=== PATIENT | female | born 1990 | race Hispanic/Latino ===

== ENCOUNTER 2017-09-13 23:43 | Emergency (ER) | payer SELFPAY ==
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
[2017-09-13] MEDS ORDERED: Ibuprofen 600 MG Tab PO ONE (23:53)
[2017-09-13] MEDS ORDERED: Ondansetron 4 MG Tab.DIS PO ONE (23:53)
[2017-09-13] MEDS: Acetaminophen/oxyCODONE 325-5 MG Tab PO ONE (23:58)
[2017-09-14] MEDS: Acetaminophen/oxyCODONE 325-5 MG Tab PO ONE (00:48)
--- NOTE | 2017-09-15 11:40 | CT ---
CT facial bones Technique: Multiple axial sections through the facial bones were obtained. Reconstructed sagittal and coronal images were reviewed. Comparison: No prior CT for facial bone study. Findings: Soft tissue hematoma and swelling are seen within the left frontal scalp. Right and left globes are symmetric. No facial bone fracture is appreciated. Paranasal sinuses are clear. Impression: 1. Soft tissue hematoma and swelling within the left frontal scalp. 2. No additional abnormality is appreciated on CT study of the facial bones. Diagnostic code #3 I agree with preliminary report issued by [facility] ([facility] report finalized on 09/14/17, 1:39 AM Central Time)
--- NOTE | 2017-09-15 11:40 | CT ---
Head CT Technique: Multiple axial sections through the brain were obtained. Intravenous contrast was not utilized. Comparison: No prior intracranial imaging. Findings: Soft tissue hematoma is noted within the left posterior frontal scalp. Ventricles along with basal cisterns and sulci over the convexities are within normal limits for the patient's age. Slight motion artifact seen on several of the cuts. No definite areas of intracranial hemorrhage. No midline shift or mass effect is seen. Bone window settings were reviewed which show the visualized sinuses to appear clear. No acute calvarial abnormality is appreciated. Impression: 1. Soft tissue hematoma within the posterior left frontal scalp. 2. Mild motion artifact. 3. No definite acute intracranial abnormality is identified. Diagnostic code #3 I agree with preliminary report issued by [facility] ([facility] report finalized on 09/14/17, 1:40 AM Central Time)
== END 2017-09-14 00:45 | disposition home or self-care (01) ==
LOC: JD.ED 23:43 → EDBD 23:43 → JD.ED 09-14 00:45
DX: S01.511A Laceration without foreign body of lip, initial encounter (principal); Y04.2XXA Assault by strike against or bumped into by another person, initial encounter
CPT/HCPCS: 70450; 70486; 99285; A9270

== ENCOUNTER 2020-06-06 07:16 | Inpatient (IN) | payer MEDICAID ==
[2020-06-06] MEDS ORDERED: Nalbuphine 10 MG/ML Syringe IVPUSH PRN (07:20)
[2020-06-06] MEDS ORDERED: Sodium Chloride 0.9% 10 ML Syringe FLUSH PRN (07:20)
[2020-06-06] MEDS ORDERED: Ondansetron 4 MG/2 ML SDV IVPUSH PRN (07:20)
--- NOTE | 2020-06-06 07:23 | PCM.LDHP ---
L&D History of Present Illness - General Date of Service: 06/06/20 Admit Problem/Dx: Patient Status Order with Admit Dx/Problem 06/06/20 07:20 Patient Status [ADT] Routine Admission Diagnosis/Problem Admission Diagnosis/Problem Gestational diabetes mellitus Source of Information: Patient History Limitations: Reports: No Limitations - History of Present Illness Introduction:: Patient is a 29 y/o at 39 2/7 wks who presents for IOL for GODMA1. Doing well today. Notes some rare contractions - Related Data Allergies/Adverse Reactions: Allergies Allergy/AdvReac Type Severity Reaction Status Date / Time No Known Allergies Allergy Verified 09/13/17 23:47 Home Medications: Home Meds . [No Known Home Meds] 09/13/17 [History] Past Medical History SPRAYER INSECTICIDE History: Reports: : 3 Para: 2 LMP (Approximate): - Past Surgical History GI Surgical History: Reports: Cholecystectomy Social & Family History - Tobacco Use Smoking Status *Q: Former Smoker - Alcohol Use Alcohol Use History: No - Recreational Drug Use Recreational Drug Use: No - Living Situation & Occupation Living situation: Reports: Occupation: Unemployed H&P Review of Systems - Review of Systems: Review Of Systems: See Below General: Reports: No Symptoms Pulmonary: Reports: No Symptoms Cardiovascular: Reports: No Symptoms Gastrointestinal: Reports: No Symptoms Genitourinary: Reports: No Symptoms Musculoskeletal: Reports: No Symptoms Psychiatric: Reports: No Symptoms Neurological: Reports: No Symptoms L&D Exam - Exam Exam: See Below - OB Specific Contraction Intensity: Irritability Movement: Active Heart Tones: Present Heart Tones per Min: 135 Heart Rate (FHR) Variability: Moderate (6-25 bmp) Presentation: Vertex - Liu Score Liu Score Cervix Position: Posterior Liu Score Consistency: Medium Liu Score Effacement: 31-50% Liu Score Dilation: 1-2 cm Liu Score Infant's Station: -2 Liu Score Total: 4 - Exam General: Alert, Oriented, Cooperative Lungs: Clear to Auscultation, Normal Respiratory Effort Cardiovascular: Regular Rate, Regular Rhythm GI/Abdominal Exam: Soft, Non-Tender Genitourinary: Normal external exam Extremities: Normal Inspection Skin: Warm, Dry, Intact - Patient Data Result Diagrams: 06/06/20 08:31 - Problem List (1) 39 weeks gestation of SNOMED Code(s): 34271392 ICD Code: Z3A.39 - 39 WEEKS GESTATION OF Status: Acute Current Visit: Yes (2) Gestational diabetes SNOMED Code(s): 21181016 ICD Code: O24.419 - GESTATIONAL DIABETES MELLITUS IN , UNSP CONTROL Status: Acute Current Visit: Yes Qualifiers: Gestational diabetes mellitus control: diet-controlled Trimester: third trimester Qualified Code(s): O24.410 - Gestational diabetes mellitus in , diet controlled (3) GBS (group B Streptococcus carrier), +RV culture, currently SNOMED Code(s): 4639222204727, [id number], 1369834417086 ICD Code: O99.820 - STREPTOCOCCUS B CARRIER STATE COMPLICATING Status: Acute Current Visit: Yes Problem List Initiated/Reviewed/Updated: Yes Orders Last 24hrs: Active Orders 24 hr Category Date Time Status Patient Status [ADT] Routine ADT 06/06/20 07:20 Ordered Blood Glucose Check, Bedside [RC] Q4HR Care 06/06/20 07:20 Ordered Communication Order [RC] ASDIRECTED Care 06/06/20 07:20 Ordered Communication Order [RC] ASDIRECTED Care 06/06/20 07:20 Ordered Communication Order [RC] ASDIRECTED Care 06/06/20 07:20 Ordered Monitoring [RC] INTERMITTENT Care 06/06/20 07:20 Ordered Non Stress Test [RC] PER UNIT ROUTINE Care 06/06/20 07:20 Ordered Notify Provider [RC] ASDIRECTED Care 06/06/20 07:20 Ordered Notify Provider [RC] PRN Care 06/06/20 07:20 Ordered Peripheral IV Care [RC] . DIRECTED Care 06/06/20 07:20 Ordered Vaginal Exam [RC] ASDIRECTED Care 06/06/20 07:20 Ordered Vital Signs [RC] ASDIRECTED Care 06/06/20 07:20 Ordered Regular Diet [DIET] Diet 06/06/20 Breakfast Ordered CBC W/O DIFF,HEMOGRAM [HEME] Routine Lab 06/06/20 07:20 Ordered CORONAVIRUS COVID-19 PAULINE [MOLEC] Routine Lab 06/06/20 07:20 Ordered RAPID PLASMA REAGIN,RPR [CHEM] Routine Lab 06/06/20 07:20 Ordered TYPE AND SCREEN [BBK] Routine Lab 06/06/20 07:20 Ordered Ampicillin 1 gm Med 06/06/20 07:30 Ordered Sodium Chloride 0.9% [Normal Saline] 100 ml IV Q4H Ampicillin 2 gm Med 06/06/20 07:20 Ordered Sodium Chloride 0.9% [Normal Saline] 100 ml IV ONETIME Lactated Ringers [Ringers, Lactated] 1,000 ml Med 06/06/20 07:30 Ordered IV ASDIRECTED Nalbuphine [Nubain] Med 06/06/20 07:20 Ordered 10 mg IVPUSH Q2H PRN Ondansetron [Zofran] Med 06/06/20 07:20 Ordered 4 mg IVPUSH Q4H PRN Oxytocin/Lactated Ringers [Pitocin in LR 10 Units/1,000 Med 06/06/20 07:30 Ordered ML] 10 unit in 1,000 ml IV .CONTINUOUS Oxytocin/Lactated Ringers [Pitocin in LR 10 Units/1,000 Med 06/06/20 07:30 Ordered ML] 10 unit in 1,000 ml IV TITRATE Sodium Chloride 0.9% [Saline Flush] Med 06/06/20 07:20 Ordered 10 ml FLUSH ASDIRECTED PRN Electronic Heart Tones Internal [WOMSER] Per Unit Oth 06/06/20 07:20 Ordered Routine Peripheral IV Insertion Adult [OM.PC] Routine Oth 06/06/20 07:20 Ordered Resuscitation Status Routine Resus Stat 06/06/20 07:20 Ordered Assessment/Plan Comment:: * Labs done * GBS positive, will start Ampicillin * Blood sugars q4 * Pitocin and ROM for IOL * Pain management per patient preference * Anticipate
[2020-06-06] MEDS ORDERED: Oxytocin/Lactated Ringers 10 UNIT/1,000 ML BAG IV SCH ×2 (07:30)
[2020-06-06] MEDS ORDERED: Ampicillin 2 GM in Sodium Chloride 0.9% 100 ML IV ONE (07:30)
[2020-06-06] MEDS: Lactated Ringers 1,000 ML IV SCH ×2 (08:05→12:56)
--- NOTE | 2020-06-06 10:02 | PCM.PREANE ---
Preanesthetic Assessment - Procedure Proposed Procedure: jose - Anesthesia/Transfusion/Family Hx Anesthesia History: Prior Anesthesia Without Reaction Family History of Anesthesia Reaction: No Transfusion History: No Prior Transfusion(s) - Review of Systems General: No Symptoms Pulmonary: No Symptoms Cardiovascular: No Symptoms Gastrointestinal: No Symptoms Neurological: No Symptoms Other: Reports: Diabetes (gestational diabetes-diet) - Physical Assessment Vital Signs: 112/67 65 Height: 5 ft 3 in Weight: 92.986 kg ASA Class: 2 Mental Status: Alert & Oriented x3 Airway Class: Mallampati = 1 Dentition: Reports: Normal Dentition Thyro-Mental Finger Breadths: 3 Mouth Opening Finger Breadths: 3 ROM/Head Extension: Full Lungs: Clear to Auscultation, Normal Respiratory Effort Cardiovascular: Regular Rate, Regular Rhythm - Lab Values: Laboratory Last Values WBC 5.99 K/mm3 (3.98-10.04) 06/06/20 08:31 RBC 4.59 M/mm3 (3.98-5.22) 06/06/20 08:31 Hgb 12.4 gm/dl (11.2-15.7) 06/06/20 08:31 Hct 37.7 % (34.1-44.9) 06/06/20 08:31 MCV 82.1 fl (79.4-94.8) 06/06/20 08:31 MCH 27.0 pg (25.6-32.2) 06/06/20 08:31 MCHC 32.9 g/dl (32.2-35.5) 06/06/20 08:31 RDW Std Deviation 40.6 fL (36.4-46.3) 06/06/20 08:31 Plt Count 251 K/mm3 (182-369) 06/06/20 08:31 MPV 11.2 fl (9.4-12.3) 06/06/20 08:31 COVID-19 (PAULINE) Negative (NEGATIVE) 06/06/20 08:45 - Allergies Allergies/Adverse Reactions: Allergies Allergy/AdvReac Type Severity Reaction Status Date / Time No Known Allergies Allergy Verified 09/13/17 23:47 - Blood Blood Available: No - Acknowledgements Anesthesia Type Planned: Epidural Pt an Appropriate Candidate for the Planned Anesthesia: Yes Alternatives and Risks of Anesthesia Discussed w Pt/Guardian: Yes Pt/Guardian Understands and Agrees with Anesthesia Plan: Yes PreAnesthesia Questionnaire - Past Health History Medical/Surgical History: Denies Medical/Surgical History Cardiovascular History: Reports: None Respiratory History: Reports: None Gastrointestinal History: Reports: None : 3 Para: 2 Psychiatric History: Reports: None Endocrine/Metabolic History: Reports: Diabetes, Gestational Oncologic (Cancer) History: Reports: None - Past Surgical History GI Surgical History: Reports: Cholecystectomy - History Comment History Comment: vits- antibiotic for uti - SUBSTANCE USE Smoking Status *Q: Former Smoker Tobacco Use Within Last Twelve Months: No Second Hand Smoke Exposure: No Days Per Week of Alcohol Use: 0 Recreational Drug Use History: No - HOME MEDS Home Medications: Home Meds . [No Known Home Meds] 09/13/17 [History] - CURRENT (IN HOUSE) MEDS Current Meds: Current Medications Oxytocin/Lactated Ringer's (Pitocin In Lr 10 Units/1,000 Ml) 10 unit in 1,000 mls @ 12 mls/hr IV TITRATE UBALDO; Protocol Last Admin: 06/06/20 08:27 Dose: 2 munits/min, 12 mls/hr Documented by: Ampicillin Sodium 1 gm/ Sodium (Chloride) 100 mls @ 200 mls/hr IV Q4H UBALDO Oxytocin/Lactated Ringer's (Pitocin In Lr 10 Units/1,000 Ml) 10 unit in 1,000 mls @ 500 mls/hr IV .CONTINUOUS UBALDO Lactated Ringer's (Ringers, Lactated) 1,000 mls @ 40 mls/hr IV ASDIRECTED UBALDO Last Admin: 06/06/20 08:05 Dose: 40 mls/hr Documented by: Nalbuphine HCl (Nubain) 10 mg IVPUSH Q2H PRN PRN Reason: Pain Ondansetron HCl (Zofran) 4 mg IVPUSH Q4H PRN PRN Reason: Nausea/Vomiting Sodium Chloride (Saline Flush) 10 ml FLUSH ASDIRECTED PRN PRN Reason: Keep Vein Open Discontinued Medications Ampicillin Sodium 2 gm/ Sodium (Chloride) 100 mls @ 200 mls/hr IV ONETIME ONE Stop: 06/06/20 07:59 Last Admin: 06/06/20 08:09 Dose: 200 mls/hr Documented by:
[2020-06-06] MEDS: Ampicillin 1 GM in Sodium Chloride 0.9% 100 ML IV SCH ×3 (11:45→22:27)
--- NOTE | 2020-06-06 19:25 | PCM.DEL ---
L & D Note - General Info Date of Service: 06/06/20 - Delivery Note Labor: Induced by ARM, Induced by Oxytocin Delivery Outcome: Livebirth Infant Delivery Method: Spontaneous Vaginal Delivery-Single Infant Delivery Mode: Spontaneous Presentation: Right Occiput Anterior (MOMO) Nuchal Cord: Present Anesthesia Type: None Amniotic Fluid Description: Clear Episiotomy Type: None Laceration: None Placenta: Intact, Spontaneous Cord: 3 Vessels Estimated Blood Loss: 100 : Bulb Syringe, Stimulated, Warmed, [place] Used, Warmer Used Delivery Comments (Free Text/Narrative):: Patient found to be complete and began pushing. With maternal pushing effort head delivered from MOMO presentation. Nuchal cord present, but baby delivered quickly through. With gentle downward traction shoulders and body delivered. placed on maternal abdomen. Cord clamped and cut. Cord blood obtained. Placenta allowed time to separate and expelled intact. Inspection of the perineum showed no lacerations. - General Info Date of Service: 06/06/20 - Patient Data Vitals - Most Recent: Last Vital Signs Temp 36.0 C L 06/06/20 07:37 Pulse 80 06/06/20 09:31 Resp 16 06/06/20 07:37 BP 105/70 06/06/20 09:31 Pulse Ox Weight - Most Recent: 92.986 kg I&O - Last 24 Hours: Intake & Output 06/06/20 06/06/20 06/06/20 06:59 14:59 22:59 Intake Total 1200 100 Balance 1200 100 Lab Results Last 24 Hours: Laboratory Results - last 24 hr 06/06/20 06/06/20 06/06/20 Range/Units 08:31 08:31 08:45 WBC 5.99 (3.98-10.04) K/mm3 RBC 4.59 (3.98-5.22) M/mm3 Hgb 12.4 (11.2-15.7) gm/dl Hct 37.7 (34.1-44.9) % MCV 82.1 (79.4-94.8) fl MCH 27.0 (25.6-32.2) pg MCHC 32.9 (32.2-35.5) g/dl RDW Std Deviation 40.6 (36.4-46.3) fL Plt Count 251 (182-369) K/mm3 MPV 11.2 (9.4-12.3) fl POC Glucose (70-105) mg/dL COVID-19 (PAULINE) Negative (NEGATIVE) Blood Type A POSITIVE Gel Antibody Screen Negative 06/06/20 06/06/20 06/06/20 Range/Units 08:59 11:48 15:58 WBC (3.98-10.04) K/mm3 RBC (3.98-5.22) M/mm3 Hgb (11.2-15.7) gm/dl Hct (34.1-44.9) % MCV (79.4-94.8) fl MCH (25.6-32.2) pg MCHC (32.2-35.5) g/dl RDW Std Deviation (36.4-46.3) fL Plt Count (182-369) K/mm3 MPV (9.4-12.3) fl POC Glucose 82 74 68 L (70-105) mg/dL COVID-19 (PAULINE) (NEGATIVE) Blood Type Gel Antibody Screen Med Orders - Current: Current Medications Oxytocin/Lactated Ringer's (Pitocin In Lr 10 Units/1,000 Ml) 10 unit in 1,000 mls @ 12 mls/hr IV TITRATE UBALDO; Protocol Last Titration: 06/06/20 18:23 Dose: 6 munits/min, 36 mls/hr Documented by: Ampicillin Sodium 1 gm/ Sodium (Chloride) 100 mls @ 200 mls/hr IV Q4H UBALDO Last Admin: 06/06/20 16:01 Dose: 200 mls/hr Documented by: Oxytocin/Lactated Ringer's (Pitocin In Lr 10 Units/1,000 Ml) 10 unit in 1,000 mls @ 500 mls/hr IV .CONTINUOUS UBALDO Lactated Ringer's (Ringers, Lactated) 1,000 mls @ 40 mls/hr IV ASDIRECTED UBALDO Last Admin: 06/06/20 12:56 Dose: 100 mls/hr Documented by: Nalbuphine HCl (Nubain) 10 mg IVPUSH Q2H PRN PRN Reason: Pain Ondansetron HCl (Zofran) 4 mg IVPUSH Q4H PRN PRN Reason: Nausea/Vomiting Sodium Chloride (Saline Flush) 10 ml FLUSH ASDIRECTED PRN PRN Reason: Keep Vein Open Discontinued Medications Ampicillin Sodium 2 gm/ Sodium (Chloride) 100 mls @ 200 mls/hr IV ONETIME ONE Stop: 06/06/20 07:59 Last Admin: 06/06/20 08:09 Dose: 200 mls/hr Documented by: - Problem List & Annotations (1) 39 weeks gestation of SNOMED Code(s): 93581055 Code(s): Z3A.39 - 39 WEEKS GESTATION OF Status: Acute Current Visit: Yes (2) GBS (group B Streptococcus carrier), +RV culture, currently SNOMED Code(s): 7976479627964, 584851566, 8659433058169 Code(s): O99.820 - STREPTOCOCCUS B CARRIER STATE COMPLICATING Status: Acute Current Visit: Yes (3) Gestational diabetes SNOMED Code(s): 75166737 Code(s): O24.419 - GESTATIONAL DIABETES MELLITUS IN , UNSP CONTROL Status: Acute Current Visit: Yes Qualifiers: Gestational diabetes mellitus control: diet-controlled Trimester: third trimester Qualified Code(s): O24.410 - Gestational diabetes mellitus in , diet controlled (4) Vaginal delivery SNOMED Code(s): 463303361 Code(s): O80 - ENCOUNTER FOR FULL-TERM UNCOMPLICATED DELIVERY Status: Acute Current Visit: Yes - Problem List Review Problem List Initiated/Reviewed/Updated: Yes - My Orders Last 24 Hours: My Active Orders 06/06/20 Breakfast Regular Diet [DIET] 06/06/20 07:20 Patient Status [ADT] Routine Blood Glucose Check, Bedside [RC] Q4HR Communication Order [RC] ASDIRECTED Communication Order [RC] ASDIRECTED Communication Order [RC] ASDIRECTED Non Stress Test [RC] PER UNIT ROUTINE Notify Provider [RC] ASDIRECTED Notify Provider [RC] PRN Peripheral IV Care [RC] Q2HR Vital Signs [RC] ASDIRECTED Nalbuphine [Nubain] 10 mg IVPUSH Q2H PRN Ondansetron [Zofran] 4 mg IVPUSH Q4H PRN Sodium Chloride 0.9% [Saline Flush] 10 ml FLUSH ASDIRECTED PRN Electronic Heart Tones Internal [WOMSER] Per Unit Routine Peripheral IV Insertion Adult [OM.PC] Routine Resuscitation Status Routine 06/06/20 07:30 Lactated Ringers [Ringers, Lactated] 1,000 ml IV ASDIRECTED Oxytocin/Lactated Ringers [Pitocin in LR 10 Units/1,000 ML] 10 unit in 1,000 ml IV .CONTINUOUS Oxytocin/Lactated Ringers [Pitocin in LR 10 Units/1,000 ML] 10 unit in 1,000 ml IV TITRATE 06/06/20 08:31 PATIENT RETYPE [BBK] Routine RAPID PLASMA REAGIN,RPR [CHEM] Routine 06/06/20 11:30 Ampicillin 1 gm Sodium Chloride 0.9% [Normal Saline] 100 ml IV Q4H 06/06/20 19:23 Patient Status Manage Transfer [TRANSFER] Routine - Assessment Assessment:: PPD#0 - Plan Plan:: * Routine cares * Breast feeding * Blood sugar in AM, 2hr GTT at 6 weeks * Discharge home in 1-2 days
[2020-06-06] MEDS ORDERED: Benzocaine/Menthol 20%-0.5% Spray 56 GM Canister TOP PRN (19:52)
[2020-06-06] MEDS ORDERED: Docusate Sodium 100 MG Cap PO PRN (19:52)
[2020-06-06] MEDS ORDERED: Acetaminophen 325 MG Tab PO PRN (19:52)
[2020-06-06] MEDS ORDERED: Witch Hazel Medicated Pads 40/Jar TOP PRN (19:52)
[2020-06-06] MEDS: Ibuprofen 600 MG Tab PO PRN (21:06)
--- NOTE | 2020-06-07 07:11 | PCM.PNPP ---
- General Info Date of Service: 06/07/20 Functional Status: Reports: Pain Controlled, Tolerating Diet, Ambulating, Urinating - Review of Systems General: Reports: No Symptoms Pulmonary: Reports: No Symptoms Cardiovascular: Reports: No Symptoms Gastrointestinal: Reports: No Symptoms Genitourinary: Reports: No Symptoms Musculoskeletal: Reports: No Symptoms - Patient Data Vital Signs - Most Recent: Last Vital Signs Temp 36.8 C 06/07/20 04:45 Pulse 71 06/07/20 04:45 Resp 15 06/07/20 04:45 BP 107/65 06/07/20 04:45 Pulse Ox 100 06/07/20 04:45 Weight - Most Recent: 92.986 kg I&O - Last 24 Hours: Intake & Output 06/06/20 06/07/20 06/07/20 22:59 06:59 14:59 Intake Total 2100 Balance 2100 Lab Results - Last 24 Hours: Laboratory Results - last 24 hr 06/06/20 06/06/20 06/06/20 Range/Units 08:31 08:31 08:31 WBC 5.99 (3.98-10.04) K/mm3 RBC 4.59 (3.98-5.22) M/mm3 Hgb 12.4 (11.2-15.7) gm/dl Hct 37.7 (34.1-44.9) % MCV 82.1 (79.4-94.8) fl MCH 27.0 (25.6-32.2) pg MCHC 32.9 (32.2-35.5) g/dl RDW Std Deviation 40.6 (36.4-46.3) fL Plt Count 251 (182-369) K/mm3 MPV 11.2 (9.4-12.3) fl POC Glucose (70-105) mg/dL RPR Non-reactive (NONREACTIVE) COVID-19 (PAULINE) (NEGATIVE) Blood Type A POSITIVE Gel Antibody Screen Negative 06/06/20 06/06/20 06/06/20 Range/Units 08:45 08:59 11:48 WBC (3.98-10.04) K/mm3 RBC (3.98-5.22) M/mm3 Hgb (11.2-15.7) gm/dl Hct (34.1-44.9) % MCV (79.4-94.8) fl MCH (25.6-32.2) pg MCHC (32.2-35.5) g/dl RDW Std Deviation (36.4-46.3) fL Plt Count (182-369) K/mm3 MPV (9.4-12.3) fl POC Glucose 82 74 (70-105) mg/dL RPR (NONREACTIVE) COVID-19 (PAULINE) Negative (NEGATIVE) Blood Type Gel Antibody Screen 06/06/20 06/07/20 Range/Units 15:58 05:46 WBC (3.98-10.04) K/mm3 RBC (3.98-5.22) M/mm3 Hgb (11.2-15.7) gm/dl Hct (34.1-44.9) % MCV (79.4-94.8) fl MCH (25.6-32.2) pg MCHC (32.2-35.5) g/dl RDW Std Deviation (36.4-46.3) fL Plt Count (182-369) K/mm3 MPV (9.4-12.3) fl POC Glucose 68 L 105 (70-105) mg/dL RPR (NONREACTIVE) COVID-19 (PAULINE) (NEGATIVE) Blood Type Gel Antibody Screen Med Orders - Current: Current Medications Acetaminophen (Tylenol) 650 mg PO Q4H PRN PRN Reason: mild pain or fever Benzocaine/Menthol (Dermoplast Pain Relief [place]) 0 gm TOP ASDIRECTED PRN PRN Reason: Perineal Comfort Measure Last Admin: 06/06/20 21:07 Dose: 1 applic Documented by: Docusate Sodium (Colace) 100 mg PO BID PRN PRN Reason: Constipation Last Admin: 06/06/20 21:06 Dose: 100 mg Documented by: Ibuprofen (Motrin) 600 mg PO Q6H PRN PRN Reason: Mild pain or fever Last Admin: 06/06/20 21:06 Dose: 600 mg Documented by: Dhruv Benz ([place]) 1 pad TOP ASDIRECTED PRN PRN Reason: Perineal Comfort Measure Last Admin: 06/06/20 21:07 Dose: 1 applic Documented by: Discontinued Medications Oxytocin/Lactated Ringer's (Pitocin In Lr 10 Units/1,000 Ml) 10 unit in 1,000 mls @ 12 mls/hr IV TITRATE UBALDO; Protocol Last Titration: 06/06/20 18:23 Dose: 6 munits/min, 36 mls/hr Documented by: Ampicillin Sodium 2 gm/ Sodium (Chloride) 100 mls @ 200 mls/hr IV ONETIME ONE Stop: 06/06/20 07:59 Last Admin: 06/06/20 08:09 Dose: 200 mls/hr Documented by: Ampicillin Sodium 1 gm/ Sodium (Chloride) 100 mls @ 200 mls/hr IV Q4H UBALDO Last Admin: 06/06/20 22:27 Dose: Not Given Documented by: Oxytocin/Lactated Ringer's (Pitocin In Lr 10 Units/1,000 Ml) 10 unit in 1,000 mls @ 500 mls/hr IV .CONTINUOUS UBALDO Lactated Ringer's (Ringers, Lactated) 1,000 mls @ 40 mls/hr IV ASDIRECTED UBALDO Last Admin: 06/06/20 12:56 Dose: 100 mls/hr Documented by: Nalbuphine HCl (Nubain) 10 mg IVPUSH Q2H PRN PRN Reason: Pain Ondansetron HCl (Zofran) 4 mg IVPUSH Q4H PRN PRN Reason: Nausea/Vomiting Sodium Chloride (Saline Flush) 10 ml FLUSH ASDIRECTED PRN PRN Reason: Keep Vein Open - Infant Interaction Infant Disposition, : in Room with Family Infant Interaction: Holding Feeding: Breastfed Infant; Nursed Well Support Person: - Recovery Exam Fundal Tone: Firm Fundal Level: At Umbilicus Fundal Placement: Midline Lochia Amount: Moderate Lochia Color: Rubra/Red Perineum Description: Intact, Minimal Bruising/Swelling Episiotomy/Laceration: None Urinary Elimination: Voided - Exam General: Alert, Oriented, Cooperative GI/Abdominal Exam: Soft, Non-Tender Extremities: Normal Inspection - Problem List & Annotations (1) 39 weeks gestation of SNOMED Code(s): 15742776 Code(s): Z3A.39 - 39 WEEKS GESTATION OF Status: Acute Current Visit: Yes (2) GBS (group B Streptococcus carrier), +RV culture, currently SNOMED Code(s): 2605814734570, 334633175, 0256884818461 Code(s): O99.820 - STREPTOCOCCUS B CARRIER STATE COMPLICATING Status: Acute Current Visit: Yes (3) Gestational diabetes SNOMED Code(s): 12739142 Code(s): O24.419 - GESTATIONAL DIABETES MELLITUS IN , UNSP CONTROL Status: Acute Current Visit: Yes Qualifiers: Gestational diabetes mellitus control: diet-controlled Trimester: third trimester Qualified Code(s): O24.410 - Gestational diabetes mellitus in , diet controlled (4) Vaginal delivery SNOMED Code(s): 029580198 Code(s): O80 - ENCOUNTER FOR FULL-TERM UNCOMPLICATED DELIVERY Status: Acute Current Visit: Yes - Problem List Review Problem List Initiated/Reviewed/Updated: Yes - My Orders Last 24 Hours: My Active Orders 06/06/20 07:20 Resuscitation Status Routine 06/06/20 Dinner Regular Diet [DIET] 06/06/20 19:52 Acetaminophen [TylenoL] 650 mg PO Q4H PRN Benzocaine/Menthol [Dermoplast Pain Relief [place]] See Dose Instructions TOP ASDIRECTED PRN Docusate Sodium [Colace] 100 mg PO BID PRN Ibuprofen [Motrin] 600 mg PO Q6H PRN witch Anisha [Tucks] 1 pad TOP ASDIRECTED PRN Heat Therapy [OM.PC] PRN 06/06/20 19:52 Activity as Tolerated [RC] PER UNIT ROUTINE Vital Signs [RC] Q4HR Assess Lochia [WOMSER] Per Unit Routine Assess Uterine Involution [WOMSER] Per Unit Routine Breast Pump [WOMSER] Per Unit Routine Ice Therapy [OM.PC] Per Unit Routine Perineal Care [OM.PC] Per Unit Routine Peripheral IV Discontinue [OM.PC] Routine Sitz Bath [OM.PC] Per Unit Routine 06/07/20 05:00 Blood Glucose Check, Bedside [RC] AMPROC 06/07/20 07:09 Ready for Discharge [RC] PER UNIT ROUTINE 06/07/20 19:52 Heat Therapy [OM.PC] PRN - Assessment Assessment:: PPD#1 - Plan Plan:: * Routine cares * Breast feeding * Fating blood sugar this AM slightly elevated at 105, 2hr GTT at 6 weeks * Discharge home today
--- NOTE | 2020-06-07 07:12 | PCM.DCSUM1 ---
Discharge Summary - Discharge Data Discharge Date: 06/07/20 Discharge Disposition: Home, Self-Care 01 Condition: Good - Referral to Home Health Primary Care Physician: PCP None - Discharge Diagnosis/Problem(s) (1) 39 weeks gestation of SNOMED Code(s): 72957203 ICD Code: Z3A.39 - 39 WEEKS GESTATION OF Status: Acute Current Visit: Yes (2) GBS (group B Streptococcus carrier), +RV culture, currently SNOMED Code(s): 7892598592042, 491939296, 7111270926101 ICD Code: O99.820 - STREPTOCOCCUS B CARRIER STATE COMPLICATING Status: Acute Current Visit: Yes (3) Gestational diabetes SNOMED Code(s): 34562563 ICD Code: O24.419 - GESTATIONAL DIABETES MELLITUS IN , UNSP CONTROL Status: Acute Current Visit: Yes Qualifiers: Gestational diabetes mellitus control: diet-controlled Trimester: third trimester Qualified Code(s): O24.410 - Gestational diabetes mellitus in , diet controlled (4) Vaginal delivery SNOMED Code(s): 469670658 ICD Code: O80 - ENCOUNTER FOR FULL-TERM UNCOMPLICATED DELIVERY Status: Acute Current Visit: Yes - Patient Summary/Data Complications: None Consults: None Recommended Follow-up Testing/Procedures: Follow up in 3 weeks for check - telehealth Hospital Course: 29 y/o at 39 2/7 wks who presented for IOL for GODMA1. Induction done with pitocin and AROM. Progressed well and underwent an uncomplicated . See delivery note. was discharged home on PPD#1 - Patient Instructions Diet: Regular Diet as Tolerated Activity: As Tolerated Activity, Other: Pelvic rest for 6 weeks Driving: May Drive Today Showering/Bathing: May Shower Showering/Bathing, Other: May Bathe Notify Provider of: Fever, Increased Pain, Swelling and Redness, Drainage, Nausea and/or Vomiting - Discharge Plan *PRESCRIPTION DRUG MONITORING PROGRAM REVIEWED*: No *COPY OF PRESCRIPTION DRUG MONITORING REPORT IN PATIENT MARSHA: No Home Medications: Home Meds Ibuprofen [Motrin] 600 mg PO Q6H PRN tablet 06/07/20 [Rx] Referrals: Bharti Leggett MD [Physician] - (3 weeks, can be telehealth appt) - Discharge Summary/Plan Comment DC Time >30 min.: No - Patient Data Vitals - Most Recent: Last Vital Signs Temp 36.8 C 06/07/20 04:45 Pulse 71 06/07/20 04:45 Resp 15 06/07/20 04:45 BP 107/65 06/07/20 04:45 Pulse Ox 100 06/07/20 04:45 Weight - Most Recent: 92.986 kg I&O - Last 24 hours: Intake & Output 06/06/20 06/07/20 06/07/20 22:59 06:59 14:59 Intake Total 2100 Balance 2100 Lab Results - Last 24 hrs: Laboratory Results - last 24 hr 06/06/20 06/06/20 06/06/20 Range/Units 08:31 08:31 08:31 WBC 5.99 (3.98-10.04) K/mm3 RBC 4.59 (3.98-5.22) M/mm3 Hgb 12.4 (11.2-15.7) gm/dl Hct 37.7 (34.1-44.9) % MCV 82.1 (79.4-94.8) fl MCH 27.0 (25.6-32.2) pg MCHC 32.9 (32.2-35.5) g/dl RDW Std Deviation 40.6 (36.4-46.3) fL Plt Count 251 (182-369) K/mm3 MPV 11.2 (9.4-12.3) fl POC Glucose (70-105) mg/dL RPR Non-reactive (NONREACTIVE) COVID-19 (PAULINE) (NEGATIVE) Blood Type A POSITIVE Gel Antibody Screen Negative 06/06/20 06/06/20 06/06/20 Range/Units 08:45 08:59 11:48 WBC (3.98-10.04) K/mm3 RBC (3.98-5.22) M/mm3 Hgb (11.2-15.7) gm/dl Hct (34.1-44.9) % MCV (79.4-94.8) fl MCH (25.6-32.2) pg MCHC (32.2-35.5) g/dl RDW Std Deviation (36.4-46.3) fL Plt Count (182-369) K/mm3 MPV (9.4-12.3) fl POC Glucose 82 74 (70-105) mg/dL RPR (NONREACTIVE) COVID-19 (PAULINE) Negative (NEGATIVE) Blood Type Gel Antibody Screen 06/06/20 06/07/20 Range/Units 15:58 05:46 WBC (3.98-10.04) K/mm3 RBC (3.98-5.22) M/mm3 Hgb (11.2-15.7) gm/dl Hct (34.1-44.9) % MCV (79.4-94.8) fl MCH (25.6-32.2) pg MCHC (32.2-35.5) g/dl RDW Std Deviation (36.4-46.3) fL Plt Count (182-369) K/mm3 MPV (9.4-12.3) fl POC Glucose 68 L 105 (70-105) mg/dL RPR (NONREACTIVE) COVID-19 (PAULINE) (NEGATIVE) Blood Type Gel Antibody Screen Med Orders - Current: Current Medications Acetaminophen (Tylenol) 650 mg PO Q4H PRN PRN Reason: mild pain or fever Benzocaine/Menthol (Dermoplast Pain Relief [place]) 0 gm TOP ASDIRECTED PRN PRN Reason: Perineal Comfort Measure Last Admin: 06/06/20 21:07 Dose: 1 applic Documented by: Docusate Sodium (Colace) 100 mg PO BID PRN PRN Reason: Constipation Last Admin: 06/06/20 21:06 Dose: 100 mg Documented by: Ibuprofen (Motrin) 600 mg PO Q6H PRN PRN Reason: Mild pain or fever Last Admin: 06/06/20 21:06 Dose: 600 mg Documented by: Dhruv Benz ([facility]) 1 pad TOP ASDIRECTED PRN PRN Reason: Perineal Comfort Measure Last Admin: 06/06/20 21:07 Dose: 1 applic Documented by: Discontinued Medications Oxytocin/Lactated Ringer's (Pitocin In Lr 10 Units/1,000 Ml) 10 unit in 1,000 mls @ 12 mls/hr IV TITRATE UBALDO; Protocol Last Titration: 06/06/20 18:23 Dose: 6 munits/min, 36 mls/hr Documented by: Ampicillin Sodium 2 gm/ Sodium (Chloride) 100 mls @ 200 mls/hr IV ONETIME ONE Stop: 06/06/20 07:59 Last Admin: 06/06/20 08:09 Dose: 200 mls/hr Documented by: Ampicillin Sodium 1 gm/ Sodium (Chloride) 100 mls @ 200 mls/hr IV Q4H [facility] Last Admin: 06/06/20 22:27 Dose: Not Given Documented by: Oxytocin/Lactated Ringer's (Pitocin In Lr 10 Units/1,000 Ml) 10 unit in 1,000 mls @ 500 mls/hr IV .CONTINUOUS [facility] Lactated Ringer's (Ringers, Lactated) 1,000 mls @ 40 mls/hr IV ASDIRECTED [facility] Last Admin: 06/06/20 12:56 Dose: 100 mls/hr Documented by: Nalbuphine HCl (Nubain) 10 mg IVPUSH Q2H PRN PRN Reason: Pain Ondansetron HCl (Zofran) 4 mg IVPUSH Q4H PRN PRN Reason: Nausea/Vomiting Sodium Chloride (Saline Flush) 10 ml FLUSH ASDIRECTED PRN PRN Reason: Keep Vein Open
[2020-06-07] MEDS: Ibuprofen 600 MG Tab PO PRN (12:13)
[2020-06-07] MEDS ORDERED: Diphtheria,Pertussis(Acell),Tetanus Vaccine 0.5 ML Syringe IM ONE (20:12)
[2020-06-07] MEDS ORDERED: Measles, Mumps & Rubella Vaccine 0.5 ML SDV SUBCUT ONE (20:12)
== END 2020-06-07 21:10 | disposition home or self-care (01) | DRG 807 ==
LOC: JD.OB 07:16 → OBSVTOIN 19:08
PROVIDERS: ADMIT Obstetrics & Gynecology; ATTEND Obstetrics & Gynecology
PROC: 10E0XZZ Delivery of Products of Conception, External Approach (ICD-10-PCS; principal; 2020-06-06)
PROC: 10907ZC Drainage of Amniotic Fluid, Therapeutic from Products of Conception, Via Natural or Artificial Opening (ICD-10-PCS; 2020-06-06)
PROC: 3E033VJ Introduction of Other Hormone into Peripheral Vein, Percutaneous Approach (ICD-10-PCS; 2020-06-06)
PROC: 3E0234Z Introduction of Serum, Toxoid and Vaccine into Muscle, Percutaneous Approach (ICD-10-PCS; 2020-06-07)
DX: O24.420 Gestational diabetes mellitus in childbirth, diet controlled (principal); Z37.0 Single live birth; O99.824 Streptococcus B carrier state complicating childbirth; O69.81X0 Labor and delivery complicated by cord around neck, without compression, not applicable or unspecified; Z11.59 Encounter for screening for other viral diseases; Z90.49 Acquired absence of other specified parts of digestive tract; Z87.891 Personal history of nicotine dependence; Z23 Encounter for immunization; Z3A.39 39 weeks gestation of pregnancy
CPT/HCPCS: 36415; 59025; 59409; 82962; 85027; 86592; 86850; 86900; 86901; 90471; 90707; 90715; A9270-GY; J0290; J2590; J7050; J7120; U0002